=== PATIENT | female | born 1950 | race Hispanic/Latino ===

== ENCOUNTER 2020-03-16 14:01 | Emergency (ER) | payer OTHER ==
[2020-03-16 14:22] LABS: BASOPHILS % (AUTO) 0.2 % (0.0-5.0); EOSINOPHILS % (AUTO) 0.4 % (0.0-8.0); HEMATOCRIT 44.8 % (36-48); LYMPHOCYTES % (AUTO) 33.7 % (21.0-51.0); MEAN CORPUSCULAR HEMOGLOBIN 30.6 pg (27.0-33.0); MEAN CORPUSCULAR HGB CONC 34.2 g/dL (32.0-36.0); MEAN CORPUSCULAR VOLUME 89.6 fL (79-99); MONOCYTES % (AUTO) 8.1 % (3.0-13.0); NEUTROPHILS % (AUTO) 57.2 % (40.0-77.0); PLATELET COUNT (AUTO) 185 K/uL (130-400); RED CELL DISTRIBUTION WIDTH 12.9 % (11.0-15.5); WHITE BLOOD COUNT (AUTO) 5.1 K/uL (4.8-10.8)
[2020-03-16 14:31] LABS: CREATININE 1.1 mg/dL (0.5-1.5); POTASSIUM 3.7 mmol/L (3.5-5.1)
[2020-03-16 14:36] LABS: ALBUMIN 3.6 g/dL (3.5-5.0); BILIRUBIN,TOTAL 0.7 mg/dL (0.2-1.0); INR 0.99 (0.85-1.15); PARTIAL THROMBOPLASTIN TIME 32.9 SEC (26.3-35.5); PROTHROMBIN TIME 10.7 SEC (9.6-11.6); TOTAL PROTEIN, SERUM 7.7 g/dL (6.0-8.3)
[2020-03-16 14:41] LABS: B-TYPE NATRIURETIC PEPTIDE 62 pg/mL (0-100)
[2020-03-16] MEDS ORDERED: IOHEXOL-350 75 ML VIAL IV ONE (15:45)
[2020-03-16 16:05] LABS: APPEARANCE,URINE Clear (CLEAR); BILIRUBIN,URINE Negative (NEGATIVE); COLOR,URINE Yellow (YELLOW); GLUCOSE, URINE (UA) Negative (NEGATIVE); KETONES,URINE Trace mg/dL (NEGATIVE); LEUKOCYTE ESTERASE ,URINE Negative (NEGATIVE); NITRATE,URINE Negative (NEGATIVE); OCCULT BLOOD,URINE Negative (NEGATIVE); PROTEIN,URINE Negative (NEGATIVE)
== END 2020-03-16 17:02 | disposition home or self-care (01) ==
LOC: EDH 14:01
DX: R07.89 Other chest pain (principal); F41.9 Anxiety disorder, unspecified; Z20.828 Contact with and (suspected) exposure to other viral communicable diseases; Z72.0 Tobacco use; Z88.0 Allergy status to penicillin; Z90.49 Acquired absence of other specified parts of digestive tract; Z90.710 Acquired absence of both cervix and uterus
CPT/HCPCS: 36415; 71045; 71275; 80053; 81003; 82550; 83880; 84484; 85025; 85378; 85610; 85730; 87426; 93005; 99285; Q9967; U0003

== ENCOUNTER 2021-08-28 23:52 | Emergency (ER) | payer MEDICARE, OTHER ==
[2021-08-29 00:29] LABS: CARBON DIOXIDE 27 mmol/L (21-32); CHLORIDE 105 mmol/L (101-111); CREATININE 0.8 mg/dL (0.5-1.5); GLOMERULAR FILTR. RATE CALC 76 mL/min (>60); GLUCOSE,RANDOM 105 mg/dL (70-105); POTASSIUM 4.1 mmol/L (3.5-5.1); SODIUM SERUM 137 mmol/L (136-145); UREA NITROGEN, BLOOD 18 mg/dL (7-18)
[2021-08-29 00:33] LABS: ALANINE AMINOTRANSFERASE 88 U/L (12-78); ALBUMIN 3.4 g/dL (3.5-5.0); ALCOHOL, BLOOD < 3 mg/dL (0-10); ASPARTATE AMINOTRANSFERASE 58 U/L (10-37); BILIRUBIN,TOTAL 0.2 mg/dL (0.2-1.0); TOTAL PROTEIN, SERUM 7.1 g/dL (6.0-8.3)
[2021-08-29 00:43] LABS: ACETAMINOPHEN < 1 mcg/mL (10-30); SALICYLATE < 2.8 mg/dL (2.8-20.0)
[2021-08-29 00:49] LABS: BASOPHILS % (AUTO) 0.5 % (0.0-5.0); EOSINOPHILS % (AUTO) 0.9 % (0.0-8.0); HEMATOCRIT 40.8 % (36-48); LYMPHOCYTES % (AUTO) 28.3 % (21.0-51.0); MEAN CORPUSCULAR HEMOGLOBIN 30.7 pg (27.0-33.0); MEAN CORPUSCULAR HGB CONC 33.3 g/dL (32.0-36.0); MEAN CORPUSCULAR VOLUME 92.1 fL (79-99); MONOCYTES % (AUTO) 8.3 % (3.0-13.0); NEUTROPHILS % (AUTO) 61.7 % (40.0-77.0); PLATELET COUNT (AUTO) 178 K/uL (130-400); RED BLOOD CELL COUNT(AUTO) 4.43 MIL/uL (4.00-5.50); RED CELL DISTRIBUTION WIDTH 13.2 % (11.0-15.5); WHITE BLOOD COUNT (AUTO) 6.4 K/uL (4.8-10.8)
[2021-08-29 03:56] LABS: APPEARANCE,URINE Clear (CLEAR); BILIRUBIN,URINE Negative (NEGATIVE); COLOR,URINE Yellow (YELLOW); GLUCOSE, URINE (UA) Negative (NEGATIVE); KETONES,URINE Negative (NEGATIVE); LEUKOCYTE ESTERASE ,URINE Trace (NEGATIVE); NITRATE,URINE Negative (NEGATIVE); OCCULT BLOOD,URINE Negative (NEGATIVE); PROTEIN,URINE Negative (NEGATIVE); UROBILINOGEN,URINE 0.2 mg/dL (0.2-1.0)
[2021-08-29 04:02] LABS: BACTERIA,URINE None Seen /HPF (None Seen); RBC,URINE None Seen /HPF (0-1); SQUAMOUS EPITHELIAL CELL,UR Rare /HPF (0-2); WBC,URINE 0-1 /HPF (0-1)
[2021-08-29 04:04] LABS: AMPHET/METH SCREEN,URINE NEGATIVE (NEGATIVE); BARBITURATE SCREEN, URINE NEGATIVE (NEGATIVE); BENZODIAZEPINES SCREEN,URINE POSITIVE (NEGATIVE); CANNABINOID SCREEN,URINE NEGATIVE (NEGATIVE); COCAINE SCREEN,URINE NEGATIVE (NEGATIVE); OPIATE SCREEN,URINE NEGATIVE (NEGATIVE); PHENCYCLIDINE SCREEN,URINE NEGATIVE (NEGATIVE)
[2021-08-29 07:24] VITALS: BP 111/61
== END 2021-08-29 08:06 | disposition home or self-care (01) ==
LOC: EDH 23:52
DX: F43.0 Acute stress reaction (principal); Z20.822 Contact with and (suspected) exposure to COVID-19; F41.9 Anxiety disorder, unspecified; F32.A Depression, unspecified; Z88.0 Allergy status to penicillin; Z88.8 Allergy status to other drugs, medicaments and biological substances
CPT/HCPCS: 36415; 73110; 80053; 80305; 81001; 85025; 87635; 93005; 99285; C9803; G0481

== ENCOUNTER 2021-09-09 14:47 | Emergency (ER) | payer MEDICARE ==
[~2021-09-09] VITALS: Ht 160 cm; Wt 84.8 kg
[2021-09-09 16:09] LABS: BASOPHILS % (AUTO) 0.5 % (0.0-5.0); EOSINOPHILS % (AUTO) 1.4 % (0.0-8.0); HEMATOCRIT 43.2 % (36-48); LYMPHOCYTES % (AUTO) 32.9 % (21.0-51.0); MEAN CORPUSCULAR HEMOGLOBIN 30.8 pg (27.0-33.0); MEAN CORPUSCULAR HGB CONC 32.6 g/dL (32.0-36.0); MEAN CORPUSCULAR VOLUME 94.3 fL (79-99); MONOCYTES % (AUTO) 7.4 % (3.0-13.0); NEUTROPHILS % (AUTO) 57.5 % (40.0-77.0); PLATELET COUNT (AUTO) 160 K/uL (130-400); RED BLOOD CELL COUNT(AUTO) 4.58 MIL/uL (4.00-5.50); RED CELL DISTRIBUTION WIDTH 13.2 % (11.0-15.5); WHITE BLOOD COUNT (AUTO) 6.2 K/uL (4.8-10.8)
[2021-09-09 16:23] LABS: CREATININE 0.9 mg/dL (0.5-1.5); POTASSIUM 3.8 mmol/L (3.5-5.1)
[2021-09-09 16:36] LABS: ALBUMIN 3.6 g/dL (3.5-5.0); BILIRUBIN,TOTAL 0.8 mg/dL (0.2-1.0)
[2021-09-09] MEDS ORDERED: LORAZEPAM 1 MG TABLET PO ONE (18:00)
[2021-09-09 18:20] VITALS: BP 94/75
== END 2021-09-09 19:28 | disposition home or self-care (01) ==
LOC: EDH 14:47
DX: F43.0 Acute stress reaction (principal); F32.A Depression, unspecified; F41.9 Anxiety disorder, unspecified; Z88.0 Allergy status to penicillin; Z88.8 Allergy status to other drugs, medicaments and biological substances
CPT/HCPCS: 36415; 80053; 82550; 84484; 85025; 87635; 93005; 99284; C9803

== ENCOUNTER 2021-12-29 16:19 | Emergency (ER) | payer MEDICARE ==
[~2021-12-29] VITALS: Ht 160 cm; Wt 81.6 kg
[2021-12-29 16:21] VITALS: BP 152/69
== END 2021-12-29 16:30 | disposition left against medical advice (07) ==
LOC: EDH 16:19
DX: Z02.89 Encounter for other administrative examinations (principal); Z53.21 Procedure and treatment not carried out due to patient leaving prior to being seen by health care provider

== ENCOUNTER 2022-06-16 22:23 | Observation (INO) | payer MEDICARE, OTHER ==
[~2022-06-16] VITALS: Ht 160 cm; Wt 81.6 kg
[2022-06-16 22:51] LABS: BASOPHILS % (AUTO) 0.6 % (0.0-5.0); EOSINOPHILS % (AUTO) 1.9 % (0.0-8.0); HEMATOCRIT 41.8 % (36-48); LYMPHOCYTES % (AUTO) 36.1 % (21.0-51.0); MEAN CORPUSCULAR HGB CONC 32.5 g/dL (32.0-36.0); MEAN CORPUSCULAR VOLUME 95.2 fL (79-99); MONOCYTES % (AUTO) 6.2 % (3.0-13.0); PLATELET COUNT (AUTO) 138 K/uL (130-400); RED BLOOD CELL COUNT(AUTO) 4.39 MIL/uL (4.00-5.50); RED CELL DISTRIBUTION WIDTH 12.5 % (11.0-15.5); WHITE BLOOD COUNT (AUTO) 4.7 K/uL (4.8-10.8)
[2022-06-16 23:03] LABS: APPEARANCE,URINE CLEAR (CLEAR); BILIRUBIN,URINE NEGATIVE (NEGATIVE); COLOR,URINE LIGHT-YELLOW (YELLOW); GLUCOSE, URINE (UA) NEGATIVE (NEGATIVE); KETONES,URINE NEGATIVE (NEGATIVE); LEUKOCYTE ESTERASE ,URINE NEGATIVE Leu/uL (NEGATIVE); NITRATE,URINE NEGATIVE (NEGATIVE); OCCULT BLOOD,URINE NEGATIVE (NEGATIVE); PH,URINE 5.5 (5.0-8.0); PROTEIN,URINE NEGATIVE (NEGATIVE); UROBILINOGEN,URINE 0.2 mg/dL (0.2-1.0)
[2022-06-16 23:09] LABS: CREATININE 0.9 mg/dL (0.5-1.5); POTASSIUM 3.9 mmol/L (3.5-5.1)
[2022-06-16 23:10] LABS: AMPHET/METH SCREEN,URINE NEGATIVE (NEGATIVE); BARBITURATE SCREEN, URINE NEGATIVE (NEGATIVE); BENZODIAZEPINES SCREEN,URINE POSITIVE (NEGATIVE); CANNABINOID SCREEN,URINE POSITIVE (NEGATIVE); COCAINE SCREEN,URINE NEGATIVE (NEGATIVE); OPIATE SCREEN,URINE NEGATIVE (NEGATIVE); PHENCYCLIDINE SCREEN,URINE NEGATIVE (NEGATIVE)
[2022-06-16 23:14] LABS: ALBUMIN 3.3 g/dL (3.5-5.0); TOTAL PROTEIN, SERUM 6.9 g/dL (6.0-8.3)
[2022-06-17] VITALS (7 sets, daily range): BP systolic 98–142; BP diastolic 44–64
[2022-06-17] MEDS ORDERED: ONDANSETRON 4MG INJ IVP PRN (03:00)
[2022-06-17] MEDS ORDERED: HYDRALAZINE 20MG/ML VIAL IV PRN (03:00)
[2022-06-17] MEDS ORDERED: ACETAMINOPHEN 325 MG TAB PO PRN (03:00)
[2022-06-17] MEDS ORDERED: DOCUSATE SODIUM 100 MG CAP PO PRN (03:00)
[2022-06-17] MEDS ORDERED: ACETAMINOPHEN 650 MG SUPPOSITORY RC PRN (03:00)
[2022-06-17] MEDS ORDERED: LABETALOL 20MG SYG IV PRN (03:00)
[2022-06-17] MEDS ORDERED: TEMAZEPAM 15 MG CAPSULE PO PRN (03:00)
[2022-06-17] MEDS ORDERED: KETOROLAC 30MG VIAL (30MG/ML) IVP PRN (03:00)
[2022-06-17] MEDS ORDERED: CLONIDINE HCL 0.1 MG TABLET PO PRN (03:00)
[2022-06-17] MEDS ORDERED: LACTULOSE 20 GM/30 ML UDCUP PO PRN (03:00)
[2022-06-17] MEDS: LACTATED RINGERS 1000ML 1,000 ML IV SCH ×2 (03:14→17:08)
[2022-06-17] MEDS: INSULIN HUMULIN R 100 UNIT/ML 3ML SQ SCH ×3 (06:00→18:00)
[2022-06-17] MEDS ORDERED: INSULIN HUMULIN R 100 UNIT/ML 3ML SQ SCH (07:30)
[2022-06-17] MEDS: PANTOPRAZOLE 40 MG TAB DR PO SCH (08:36)
[2022-06-17] MEDS: AMLODIPINE-BENAZEPRIL 5-10 MG PO SCH (08:36)
[2022-06-17] MEDS ORDERED: MELO-108 PO (17:06)
[2022-06-17] MEDS ORDERED: AMLO5TAB4 PO (17:06)
[2022-06-17] MEDS ORDERED: CITA-107 PO (17:06)
[2022-06-18 04:00] VITALS: BP 119/52
[2022-06-18 05:18] LABS: BASOPHILS % (AUTO) 0.4 % (0.0-5.0); HEMATOCRIT 38.6 % (36-48); MEAN CORPUSCULAR HEMOGLOBIN 31.4 pg (27.0-33.0); MEAN CORPUSCULAR HGB CONC 33.4 g/dL (32.0-36.0); MEAN CORPUSCULAR VOLUME 93.9 fL (79-99); MONOCYTES % (AUTO) 7.5 % (3.0-13.0); NEUTROPHILS % (AUTO) 50.9 % (40.0-77.0); PLATELET COUNT (AUTO) 145 K/uL (130-400); RED BLOOD CELL COUNT(AUTO) 4.11 MIL/uL (4.00-5.50); RED CELL DISTRIBUTION WIDTH 12.3 % (11.0-15.5); WHITE BLOOD COUNT (AUTO) 5.1 K/uL (4.8-10.8)
[2022-06-18 05:30] LABS: CREATININE 0.9 mg/dL (0.5-1.5); MAGNESIUM 2.1 mg/dL (1.80-2.40); PHOSPHORUS 3.8 mg/dL (2.5-4.9); POTASSIUM 3.8 mmol/L (3.5-5.1)
[2022-06-18] MEDS: LACTATED RINGERS 1000ML 1,000 ML IV SCH (05:58)
[2022-06-18] MEDS: INSULIN HUMULIN R 100 UNIT/ML 3ML SQ SCH ×4 (06:00→18:00)
[2022-06-18] MEDS ORDERED: CALCITONIN 3.7 ML AEROSOL NS SCH (09:00)
[2022-06-18] MEDS ORDERED: ENOXAPARIN SODIUM 40 MG/0.4 ML SYRINGE SQ SCH (09:00)
[2022-06-18] MEDS: PANTOPRAZOLE 40 MG TAB DR PO SCH (10:10)
[2022-06-18] MEDS: AMLODIPINE-BENAZEPRIL 5-10 MG PO SCH (10:10)
[2022-06-18 12:00] VITALS: BP_SYST 108; BP_SYST 98; BP_DIAS 40; BP_DIAS 51
[2022-06-18] MEDS ORDERED: ALPRAZOLAM 0.25 MG TABLET PO PRN (14:30)
[2022-06-18 16:00] VITALS: BP 109/48
[2022-06-19] MEDS ORDERED: AMLODIPINE 5 MG TAB PO SCH (09:00)
[2022-06-19] MEDS ORDERED: MELOXICAM 7.5 MG TABLET PO SCH (09:00)
[2022-06-19] MEDS ORDERED: CITALOPRAM 20 MG TABLET PO SCH (09:00)
== END 2022-06-18 20:00 | disposition home or self-care (01) ==
LOC: EDH 22:23 → EDHIP 06-17 01:26 → 3BH 06-17 03:23
PROVIDERS: ADMIT Internal Medicine; ATTEND Internal Medicine
DX: S22.089A Unspecified fracture of T11-T12 vertebra, initial encounter for closed fracture (principal); Z20.822 Contact with and (suspected) exposure to COVID-19; S32.049A Unspecified fracture of fourth lumbar vertebra, initial encounter for closed fracture; S09.90XA Unspecified injury of head, initial encounter; T50.901A Poisoning by unspecified drugs, medicaments and biological substances, accidental (unintentional), initial encounter; F12.10 Cannabis abuse, uncomplicated; F13.10 Sedative, hypnotic or anxiolytic abuse, uncomplicated; F41.8 Other specified anxiety disorders; I10 Essential (primary) hypertension; R29.6 Repeated falls; E66.9 Obesity, unspecified; M81.0 Age-related osteoporosis without current pathological fracture; Z88.0 Allergy status to penicillin; Z79.899 Other long term (current) drug therapy; Z68.31 Body mass index [BMI] 31.0-31.9, adult; W18.30XA Fall on same level, unspecified, initial encounter; Y93.89 Activity, other specified; Y92.009 Unspecified place in unspecified non-institutional (private) residence as the place of occurrence of the external cause
CPT/HCPCS: 84484; 80053; 80305; 85025 ×2; 81003; 36415 ×2; 70450; 72125; 72131; 93005; 96374; 96361 ×2; 82948 ×6; 87635; 99291; 96372; 83735; 84100; 80048; 71045; 97161; 97039 ×2; G0378 ×43; J7120; J1885; J1650

== ENCOUNTER 2022-09-26 04:58 | Emergency (ER) | payer OTHER ==
[~2022-09-26] VITALS: Ht 160 cm; Wt 81.6 kg
[~2022-09-26 04:58] MED LIST: AMLO5TAB4 PO; CITA-107 PO; MELO-108 PO
[2022-09-26 05:41] LABS: BASOPHILS % (AUTO) 0.4 % (0.0-5.0); EOSINOPHILS % (AUTO) 0.6 % (0.0-8.0); LYMPHOCYTES % (AUTO) 26.9 % (21.0-51.0); MEAN CORPUSCULAR HEMOGLOBIN 31.5 pg (27.0-33.0); MEAN CORPUSCULAR VOLUME 92.6 fL (79-99); MONOCYTES % (AUTO) 7.7 % (3.0-13.0); NEUTROPHILS % (AUTO) 64.1 % (40.0-77.0); PLATELET COUNT (AUTO) 204 K/uL (130-400); RED BLOOD CELL COUNT(AUTO) 4.32 MIL/uL (4.00-5.50); WHITE BLOOD COUNT (AUTO) 7.2 K/uL (4.8-10.8)
[2022-09-26 06:08] LABS: CREATININE 0.9 mg/dL (0.5-1.5); TOTAL PROTEIN, SERUM 7.9 g/dL (6.0-8.3)
[2022-09-26] MEDS ORDERED: ALPRAZOLAM 0.25 MG TABLET PO SCH (07:30)
[2022-09-26] MEDS ORDERED: 0.9%NACL 1000ML 1,000 ML IV SCH (07:30)
[2022-09-26 07:31] LABS: APPEARANCE,URINE CLEAR (CLEAR); BILIRUBIN,URINE NEGATIVE (NEGATIVE); COLOR,URINE YELLOW (YELLOW); GLUCOSE, URINE (UA) NEGATIVE (NEGATIVE); KETONES,URINE 60 mg/dL (NEGATIVE); LEUKOCYTE ESTERASE ,URINE 25 Leu/uL (NEGATIVE); NITRATE,URINE NEGATIVE (NEGATIVE); OCCULT BLOOD,URINE NEGATIVE (NEGATIVE); PH,URINE 5.5 (5.0-8.0); PROTEIN,URINE 20 mg/dL (NEGATIVE); UROBILINOGEN,URINE 0.2 mg/dL (0.2-1.0)
[2022-09-26 07:35] LABS: AMPHET/METH SCREEN,URINE NEGATIVE (NEGATIVE); BARBITURATE SCREEN, URINE NEGATIVE (NEGATIVE); BENZODIAZEPINES SCREEN,URINE POSITIVE (NEGATIVE); CANNABINOID SCREEN,URINE NEGATIVE (NEGATIVE); COCAINE SCREEN,URINE NEGATIVE (NEGATIVE); OPIATE SCREEN,URINE NEGATIVE (NEGATIVE); PHENCYCLIDINE SCREEN,URINE NEGATIVE (NEGATIVE)
[2022-09-26 07:46] LABS: BACTERIA,URINE RARE /HPF (None Seen); CALCIUM OXALATE CRYSTALS,UR RARE /LPF (None Seen); MUCUS,URINE RARE LPF (None Seen); SQUAMOUS EPITHELIAL CELL,UR FEW /HPF (0-2); TRANSITIONAL EPI CELLS,URINE RARE /HPF (None Seen)
[2022-09-26] MEDS ORDERED: HALOPERIDOL 1 MG TABLET PO SCH (09:30)
[2022-09-26 10:56] VITALS: BP 151/64
[2022-09-26] MEDS ORDERED: HALO2 PO (11:34)
== END 2022-09-26 11:53 | disposition home or self-care (01) ==
LOC: EDH 04:58
DX: R44.3 Hallucinations, unspecified (principal); E11.9 Type 2 diabetes mellitus without complications; I10 Essential (primary) hypertension; R11.10 Vomiting, unspecified; F03.90 Unspecified dementia, unspecified severity, without behavioral disturbance, psychotic disturbance, mood disturbance, and anxiety; Z79.1 Long term (current) use of non-steroidal anti-inflammatories (NSAID); Z79.899 Other long term (current) drug therapy; Z88.0 Allergy status to penicillin; Z20.822 Contact with and (suspected) exposure to COVID-19
CPT/HCPCS: 99284; 96360; 71045; 87635; 96361; 84484; 80053; 83880; 80305; 85025; 87040 ×2; 83605; 81001; 36415; C9803; J7030

== ENCOUNTER 2023-09-25 01:09 | Emergency (ER) | payer OTHER ==
[~2023-09-25 01:09] MED LIST changes: -AMLO5TAB4 PO
[2023-09-25 06:38] VITALS: BP 131/59; PULSE 68; RESP 17; O2SAT 96
[2023-09-25] MEDS ORDERED: ACET-66 PO (06:54)
[2023-09-25] MEDS ORDERED: NIFEDIPINE 10 MG CAP PO ONE (07:00)
== END 2023-09-25 08:02 | disposition home or self-care (01) ==
LOC: EDH 01:09
DX: S32.591A Other specified fracture of right pubis, initial encounter for closed fracture (principal); I10 Essential (primary) hypertension; Z79.1 Long term (current) use of non-steroidal anti-inflammatories (NSAID); Z79.899 Other long term (current) drug therapy; Z88.0 Allergy status to penicillin; W01.0XXA Fall on same level from slipping, tripping and stumbling without subsequent striking against object, initial encounter; Y93.89 Activity, other specified; Y92.89 Other specified places as the place of occurrence of the external cause; Y99.8 Other external cause status
CPT/HCPCS: 72192